=== PATIENT | male | born 1930 | race Two or more races ===

== ENCOUNTER 2017-01-14 06:40 | Inpatient (IN) | payer MEDICARE, OTHER ==
[~2017-01-14] VITALS: Ht 175.3 cm; Wt 64.0 kg
[~2017-01-14 06:40] MED LIST: AMLO10TA2 PO; AMOX500C2 PO; CALC-343 PO; CHOL100040 PO; CYAN10009 PO; FERR1TAB44 PO; LOSA50TA21 PO; MULT-1168 PO; PANT40TA4 PO; PYRI50TA9 PO; QUET25TA PO; TRIPLEFLEX PO
--- NOTE | 2017-01-14 06:40 | NUR ---
sl 20g to hand [employer].
--- NOTE | 2017-01-14 06:40 | NUR ---
to bed 2 bib paramedics c/o witnessed syncopal episode. received pt aaox4 no acute distress noted, resp even and unlabored. noted L forearm skin avulsion s/p syncopal episode. place pt on cardiac monitoring, continuous pox. er md at bedside to eval pt with orders received.
--- NOTE | 2017-01-14 06:51 | NUR ---
knitting machine operator automatic at bedside for blood draw.
--- NOTE | 2017-01-14 06:51 | NUR ---
results technician at bedside for cxr.
--- NOTE | 2017-01-14 07:04 | NUR ---
shanell corrigan talking to pt son regarding pt.
--- NOTE | 2017-01-14 07:07 | NUR ---
report given to am shift shell cuello.
--- NOTE | 2017-01-14 07:10 | NUR ---
pt transported to radiology for ct head.
--- NOTE | 2017-01-14 07:26 | NUR ---
Pt's back from CT scan. Irma upholstery sewer called for blood draw
[2017-01-14] MEDS ORDERED: LEVO50TA8 PO (07:51)
[2017-01-14] MEDS ORDERED: MULT-213 PO (07:51)
[2017-01-14] MEDS ORDERED: LOSA50TA21 PO (07:51)
[2017-01-14] MEDS ORDERED: METO25TA6 PO (07:51)
[2017-01-14] MEDS ORDERED: BUSP5TAB3 PO (07:51)
[2017-01-14] MEDS ORDERED: SUCR1TAB PO (07:51)
[2017-01-14] MEDS ORDERED: DOCU-25 PO (07:51)
[2017-01-14] MEDS ORDERED: FERR325T22 PO (07:51)
[2017-01-14] MEDS ORDERED: TAMS0.4C34 PO (07:51)
--- NOTE | 2017-01-14 07:58 | NUR ---
BP elevated, Dr. Pratt notified.
--- NOTE | 2017-01-14 07:59 | NUR ---
Pt taken to radiology for CT of the lumbar and spine.
[2017-01-14 08:05] LABS: CALCIUM, SERUM 8.8 mg/dL (8.5-10.1); CARBON DIOXIDE 31 mmol/L (21-32); CHLORIDE 99 mmol/L (98-107); CREATININE 0.9 mg/dL (0.6-1.3); GLUCOSE 112 mg/dL (74-106); POTASSIUM 4.1 mmol/L (3.5-5.1); SODIUM SERUM 136 mmol/L (136-145); UREA NITROGEN, BLOOD 15 mg/dL (7-18)
[2017-01-14 08:07] LABS: EOSINOPHILS # (AUTO) 0.1 /CMM (0.0-0.7); EOSINOPHILS % (AUTO) 2.2 % (0.0-6.0); HEMATOCRIT 38 % (39-51); HEMOGLOBIN 12.1 g/dL (13.5-17.5); LYMPHOCYTES # (AUTO) 0.9 /CMM (0.8-4.8); LYMPHOCYTES % (AUTO) 20.7 % (20.0-44.0); MEAN CORPUSCULAR HEMOGLOBIN 26 PG (26.0-33.0); MEAN CORPUSCULAR HGB CONC 32 g/dl (31.0-36.0); MEAN CORPUSCULAR VOLUME 81 fL (80-96); MONOCYTES # (AUTO) 0.3 /CMM (0.1-1.30); MONOCYTES % (AUTO) 6.7 % (2.0-12.0); NEUTROPHILS # (AUTO) 3.2 /CMM (1.8-8.9); NEUTROPHILS % (AUTO) 70.4 % (43.0-81.0); PLATELET COUNT (AUTO) 248 /CMM (150-450); RDW COEFFICIENT OF VARIATION 15.4 (11.5-15.0); RED BLOOD CELL COUNT(AUTO) 4.71 MIL/uL (4.5-6.0); WHITE BLOOD COUNT (AUTO) 4.5 K/uL (4.3-11.0)
[2017-01-14 08:10] LABS: ALANINE AMINOTRANSFERASE 31 U/L (12-78); ALBUMIN 3.7 g/dL (3.4-5.0); ALKALINE PHOSPHATASE 91 U/L (46-116); ASPARTATE AMINOTRANSFERASE 27 U/L (15-37); BILIRUBIN,DIRECT 0.1 mg/dL (0.0-0.2); BILIRUBIN,TOTAL 0.3 mg/dL (0.2-1.0); TOTAL PROTEIN, SERUM 7.5 g/dL (6.4-8.2)
[2017-01-14 08:13] LABS: TROPONIN I < 0.017 ng/mL (0.00-0.056)
--- NOTE | 2017-01-14 08:16 | NUR ---
Pt' back fromCT, pt was reconnected to the monitor.
[2017-01-14 08:18] LABS: LACTIC ACID 0.9 mmol/L (0.4-2.0)
[2017-01-14 08:24] LABS: INR 1.02 (0.87-1.13)
[2017-01-14] MEDS ORDERED: MAGNESIUM HYDROXIDE 30 ML UDC PO PRN (08:30)
[2017-01-14] MEDS ORDERED: ONDANSETRON HCL/PF 4 MG/2 ML VIAL IVP PRN (08:30)
[2017-01-14] MEDS ORDERED: ACETAMINOPHEN 325 MG TABLET PO PRN (08:30)
[2017-01-14] MEDS ORDERED: ZOLPIDEM TARTRATE 5 MG TABLET PO PRN (08:30)
[2017-01-14] MEDS ORDERED: MAG HYDROX/AL HYDROX/SIMETH 30 ML UDC PO PRN (08:30)
--- NOTE | 2017-01-14 08:51 | NUR ---
transferred to floor via acls protocol
--- NOTE | 2017-01-14 09:04 | NUR ---
Report given to oskar goff for cont of care
--- NOTE | 2017-01-14 09:18 | NUR ---
RN NOTES ADMITTED 86 Y/O M FROM ER WITH DX OF SYNCOPE, PT IS AWAKE ALERT ISLAM SPEAKING, ACCOUNT FINANCIAL MANAGER AT BEDSIDE. PT ON O2@2LPM VIA NC SATING 95%. DENIES PAIN AT THIS TIME. TELEBOX ATTACHED, NOTED SR ON MONITOR HR 66BPM. VS TAKEN AND RECORDED. NOTED BP 196/60, RECHECKED 195/125. DR MARK ARROYO AWARE WITH NEW ORDERS MADE. ORIENTED PT TO UNIT AND CALL LIGHT USE, SAFETY MAINTAINED, NEEDS ATTENDED. CALL LIGHT WITHIN REACH WILL CONT TO MONITOR
[2017-01-14 09:23] VITALS: BP 196/60
[2017-01-14] MEDS: hydrALAZINE HCL 10 MG TABLET PO PRN ×2 (09:28→20:58)
[2017-01-14] MEDS: METOPROLOL TARTRATE 25 MG TABLET PO SCH ×2 (09:28→16:23)
[2017-01-14] MEDS: busPIRone 5 MG TABLET PO SCH ×3 (10:58→16:23)
[2017-01-14] MEDS: SUCRALFATE 1 G TABLET PO SCH ×4 (10:58→20:50)
[2017-01-14] MEDS: FERROUS SULFATE (325 MG) 325 MG/TAB TABLET PO SCH (10:58)
[2017-01-14] MEDS: MULTIVITAMINS W-MINERALS 1 TAB TABLET PO SCH (10:58)
[2017-01-14] MEDS: HYDROCODONE/APAP 5/325MG 1 EACH TABLET PO PRN ×2 (10:59→16:15)
[2017-01-14] MEDS: LEVOTHYROXINE SODIUM 50 MCG TABLET PO SCH (11:03)
[2017-01-14] MEDS: LOSARTAN POTASSIUM 50 MG TABLET PO SCH ×2 (11:03→16:22)
--- NOTE | 2017-01-14 11:03 | NUR ---
RN NOTES BP RECEHECKED, 169/70
[2017-01-14] MEDS ORDERED: Z GUARD REMEDY 2 OZ OINT TP PRN (12:30)
--- NOTE | 2017-01-14 13:00 | NUR ---
RN NOTES BED ALARM GOING OFF, PT NOTED GOT OUT OF BED UNASSISTED, PT HIGH RISK FOR FALL. REDIRECTED PT BACK TO BED, UNABLE TO FOLLOW SAFETY DIRECTION AT THIS TIME. PT KEPT DRY AND COMFORTABLE. BED ALARM ON. PER DR ANIL KAMINSKI TO HAVE 1:1 SITTER FOR SAFETY
--- NOTE | 2017-01-14 13:17 | NUR ---
RN NOTES REPORTED TO DR MA LUMBAR AND THORACIC CT, ORTHOPEDIC SURGEON WILL BE CONSULTED
--- NOTE | 2017-01-14 13:40 | NUR ---
WOUND CARE CONSULT: PT NOT SEEN YET FOR SKIN ASSESSMENT DUE TO PT RESTING. PER RN, PT JUST MEDICATED FOR SEVERE AGITATION. PER RN, RT ARM SKIN TEAR WITH MEPILEX. RECOMMENDATIONS MADE BASED ON NURSING REPORT. WILL SEE PT PT CONDITION PERMITS. VERNA SCORE NOTED TO BE 13. PT TO HAVE ORTHO CONSULT. PT FELL AT HIS FACILITY PER H&P. PT ON LARRY ISOFLEX LOW AIRLOSS BED. PT TO BE TURNED AND REPOSITIONED EVERY 2 HRS PT CONDITION PERMITS, HEELS FLOATED. IN AGREEMENT WITH PLAN OF CARE. Addendum: 01/14/17 at 1358 by MAKAYLA GOMEZ WNDNU CORRECTION: PER NURSING STAFF, SKIN TEAR IS ON LEFT ARM.
[2017-01-14] MEDS ORDERED: MORPHINE SULFATE INJ 2 MG/ML DISP.SYRIN IV PRN (15:00)
[2017-01-14] MEDS: Z GUARD REMEDY 2 OZ OINT TP PRN (15:05)
[2017-01-14] MEDS: NEOMY SULF/BACITRAC ZN/POLY 15 GM TUBE TP SCH (16:15)
--- NOTE | 2017-01-14 17:31 | NUR ---
RN NOTES PT WAS SEEN AND EXAMINED BY ZOHREH FROM ORTHO PER ZOHREH HUMPHREYS WILL BE CONSULTED BUT MRI WILL BE ORDERED FIRST
--- NOTE | 2017-01-14 18:48 | NUR ---
RN CLOSING NOTES, PT IN BED, VERY AGITATED AT THIS TIME, PT IS CONFUSED, UNABLE TO REDIRECT. PER REQUEST, DO NOT GIVE PAIN MEDICATION AT THIS TIME. SAFETY MEASURES IMPLEMENTED, SITTER AT BEDSIDE. PT ATE 75% OF DINNER KEPT COMFORTABLE, CALL LIGHT WITHIN REACH.
--- NOTE | 2017-01-14 19:10 | NUR ---
RN NOTE SPOKE WITH , CONSENT OKAY FOR MRI, CHECKLIST COMPLETED, INTERVIEWED VIA TELEPHONE
[2017-01-14 20:00] VITALS: BP 199/78
--- NOTE | 2017-01-14 20:00 | NUR ---
Patient AA&O X 2 OTHERWISE CONFUSED AND AGITATED TALKING NON STOP.WITH 1:1 SITTER AT BEDSIDE.SR/SB PER MONITOR.O2 SAT 96 % ON RA.RESPIRATION EVEN AND UNLABORED.NO DISTRESS NOTED.PATIENT MOVES IN BED INDEPENDENTLY.WITH LEFT ARM ABRASION KITCHEN HAND.SALINE LOCK TO LEFT HAND INTACT.SAFETY/FALL PRECAUTION MAINTAINED WITH CALL LIGHT AT BEDSIDE WITHIN EASY REACH.
[2017-01-14 20:58] VITALS: BP 150/70
--- NOTE | 2017-01-14 20:58 | NUR ---
BP LYING DOWN 150/56, PULSE 56,RR 19, O2 SAT 96%. BP SITTING 199/78,PULSE 58,RR 19, O2 SAT 96% BP STANDING 183/75,PULSE 60,RR 20,O2 SAT 96 % Patient was medicated with Hydralazine po as PRN.Patient confused and agitated.Fall and safety precaution observed with 1:1 SITTER at bedside at all times. Addendum: 01/14/17 at 2146 by GONZALEZ CRUZ RN Amended: Links added.
[2017-01-14] MEDS: QUETIAPINE FUMARATE 25 MG TABLET PO SCH (21:29)
[2017-01-14] MEDS: DOCUSATE SODIUM 100 MG CAPSULE PO SCH (21:29)
[2017-01-14] MEDS: TAMSULOSIN 0.4 MG CAP.SR.24H PO SCH (21:29)
[2017-01-15] VITALS (8 sets, daily range): BP systolic 122–213; BP diastolic 56–95
[2017-01-15] MEDS ORDERED: hydrALAZINE HCL IV 20 MG VIAL ONE (00:32)
[2017-01-15] MEDS: hydrALAZINE HCL IV 20 MG VIAL IV PRN ×2 (00:37→21:04)
[2017-01-15 06:46] LABS: EOSINOPHILS # (AUTO) 0.3 /CMM (0.0-0.7); EOSINOPHILS % (AUTO) 4.3 % (0.0-6.0); HEMATOCRIT 37 % (39-51); HEMOGLOBIN 11.8 g/dL (13.5-17.5); LYMPHOCYTES # (AUTO) 1.2 /CMM (0.8-4.8); LYMPHOCYTES % (AUTO) 17.3 % (20.0-44.0); MEAN CORPUSCULAR HEMOGLOBIN 26 PG (26.0-33.0); MEAN CORPUSCULAR HGB CONC 32 g/dl (31.0-36.0); MEAN CORPUSCULAR VOLUME 81 fL (80-96); MONOCYTES % (AUTO) 15.3 % (2.0-12.0); NEUTROPHILS # (AUTO) 4.3 /CMM (1.8-8.9); NEUTROPHILS % (AUTO) 63.1 % (43.0-81.0); PLATELET COUNT (AUTO) 223 /CMM (150-450); RDW COEFFICIENT OF VARIATION 15.9 (11.5-15.0); RED BLOOD CELL COUNT(AUTO) 4.58 MIL/uL (4.5-6.0); WHITE BLOOD COUNT (AUTO) 6.9 K/uL (4.3-11.0)
--- NOTE | 2017-01-15 06:55 | NUR ---
PATIENT ABLE TO SLEEP COUPLE OF HRS WITH SLEEPING PILL.STILL AGITATED AND CONFUSED. DENIES PAIN.ALL NEEDS ANTICIPATED AND MET.1:1 SITTER AT BEDSIDE.
--- NOTE | 2017-01-15 07:05 | NUR ---
RN NOTES RECEIVED PT AWAKE ALERT WITH EPISODE OF CONFUSION ,AGITATED , GONSALO SPEAKING, 1 ;1 SITTER AT BEDSIDE , .PT ON O2 @2LPM VIA NC SATING 96%. NO S/S OF DISCOMFORT AND SOB , NOT IN ACUTE DISTRESS AT THIS TIME. SR 75 ON TELE MONITOR . IV OF L HAND @ 20 SL PATENT AND INTACT , ALL NEEDS ATTENDED , BED ON LOW AND LOCKED POSITION , SIDE RAILS X2 .CALL LIGHT WITHIN REACH , HOB @ 35 , WILL CONTINUE TO MONITOR
[2017-01-15 07:22] LABS: THYROID STIMULATING HORMONE 5.625 uIU/mL (0.358-3.74)
[2017-01-15 07:24] LABS: ALBUMIN 3.4 g/dL (3.4-5.0); BILIRUBIN,TOTAL 0.3 mg/dL (0.2-1.0); CALCIUM, SERUM 8.7 mg/dL (8.5-10.1); CREATININE 0.8 mg/dL (0.6-1.3); MAGNESIUM 1.7 mg/dL (1.8-2.4); PHOSPHORUS 3.1 mg/dL (2.5-4.9); POTASSIUM 3.8 mmol/L (3.5-5.1)
[2017-01-15] MEDS: SUCRALFATE 1 G TABLET PO SCH ×4 (08:55→21:04)
[2017-01-15] MEDS: busPIRone 5 MG TABLET PO SCH ×3 (08:55→17:38)
[2017-01-15] MEDS: MULTIVITAMINS W-MINERALS 1 TAB TABLET PO SCH (08:55)
[2017-01-15] MEDS: LEVOTHYROXINE SODIUM 50 MCG TABLET PO SCH (08:55)
[2017-01-15] MEDS: NEOMY SULF/BACITRAC ZN/POLY 15 GM TUBE TP SCH (08:56)
[2017-01-15] MEDS: FERROUS SULFATE (325 MG) 325 MG/TAB TABLET PO SCH (08:56)
[2017-01-15] MEDS: PANTOPRAZOLE 40 MG TABLET.DR PO SCH (08:56)
[2017-01-15] MEDS: METOPROLOL TARTRATE 25 MG TABLET PO SCH ×2 (08:56→17:39)
[2017-01-15] MEDS: LOSARTAN POTASSIUM 50 MG TABLET PO SCH ×2 (08:56→17:39)
[2017-01-15] MEDS ORDERED: LORAZEPAM INJ 2 MG/ML VIAL IV ONE (09:00)
--- NOTE | 2017-01-15 09:00 | NUR ---
CONCRETE ENGINEERING TECHNICIAN NOTES MRI CHECKLIST DONE , PER PT SON AND PT HAD BILATERAL HIP REPLACEMENT DONE 10 - 11 YEARS AGO . VERIFIED IF ITS TITANIUM , PER SHE DOESN'T HAVE ANY IDEA , JAVA ENGINEER NOTIFIED BILATERAL HIP SX WAS DONE IN [facility] , Addendum: 01/15/17 at 1358 by IGNACIO ROBERTSON RN UPPER DENTURES REMOVED FOR MRI , WILL CONTINUE TO MONITOR
[2017-01-15 09:01] LABS: EOSINOPHILS % (MANUAL) 5 % (0-4); LYMPHOCYTES % (MANUAL) 25 % (16-48); MONOCYTES % (MANUAL) 13 % (0-11.0); NEUTROPHILS % (MANUAL) 57 (42-76); PLATELET ESTIMATE ADEQUATE
[2017-01-15 09:02] LABS: ANISOCYTOSIS 1+; HYPOCHROMASIA 1+
[2017-01-15] MEDS ORDERED: ZOLPIDEM TARTRATE 5 MG TABLET PO PRN (11:00)
[2017-01-15] MEDS ORDERED: IV SET PRIMARY PUMP SET 1 EA INFUS.SET MC ONE (11:59)
[2017-01-15] MEDS: ACETAMINOPHEN 325 MG TABLET PO SCH ×2 (12:09→17:38)
[2017-01-15] MEDS: Magnesium 1GM/D5W 100ML PREMIX 100 ML IV SCH ×2 (12:30→13:34)
--- NOTE | 2017-01-15 13:52 | NUR ---
AUTO MOTOR MECHANIC NOTES GERIATRIC MD AND DR MA AT BEDSIDE ,DISCUSSING PLAN OF CARE WITH SON , NOTIFIED PT HAD BILATERAL KNEE AND HIP XRAY NEGATIVE FOR DISLOCATION AND FRACTURE , BP OF 213/79 0037 LAST NIGHT HYDRALAZINE 10MG IVP GIVEN , LATEST CORONA OF 150'S TODAY , PT STILL AGITATED AND CONFUSE WITH 1:1 SITTER . 0915 TRANSFERED PT TO MRI DEPARTMENT SEDATED PT WITH ATIVAN 1MG , 0920 , UNABLE TO GET COMPLETE MRI PT GETS AGITATED , WILL CALL MRI DEPARTMENT FOR REPEAT MRI . 1350 LOG DRIVER AT BEDSIDE , DISCUSSING PLAN OF CARE FOR REHABILITATION .
[2017-01-15] MEDS ORDERED: LORAZEPAM INJ 2 MG/ML VIAL ONE (16:17)
--- NOTE | 2017-01-15 16:55 | NUR ---
RN NOTES PT HAS EPISODE OF SYNCOPAL EPISODE IN MRI TRAILER FOR 3-5 SECONDS , DEEP STIMULATE THE PT , ABLE TO RESPONSE , NO FACIAL DROOP , BUE WNL ABLE TO SQUEEZE HANDS , BP OF 140/55 , PULSES ARE PALPABLE , RESPIRATIONS EVEN AND UNLABORED , TRANSFERRED PT BACK TO ROOM , V/S CHECKED , BP 146/70 , HR 65 , SPO2 OF 99% VIA RA , RR 22 , AFEBRILE , MORE AWARE ,RESPONSIVE STILL AGITATED , MD AWARE NO NEW ORDERS RECEIVED . DR MA AT BEDSIDE DISCUSSING PLAN OF CARE TO SON , NO NARCOTICS , SEDATION FOR 24 HOURS PER MD ,
[2017-01-15] MEDS ORDERED: HYDROCODONE/APAP 5/325MG 1 EACH TABLET PO PRN (17:00)
[2017-01-15] MEDS ORDERED: SENNOSIDES/DOCUSATE SODIUM 1 TAB TABLET PO SCH (18:00)
--- NOTE | 2017-01-15 20:00 | NUR ---
RECEIVED PATIENT AT BED, SLEEPING AT THIS TIME, VSS AFEBRILE NO DISTRESS NOTED
--- NOTE | 2017-01-15 21:00 | NUR ---
VITAL SIGNS TAKEN,BP ELEVATED- HYDRALAZINE GIVEN SCHEDULED ALONG WITH SCHEDULED MEDICATIONS
[2017-01-15] MEDS: TAMSULOSIN 0.4 MG CAP.SR.24H PO SCH (21:04)
[2017-01-15] MEDS: DOCUSATE SODIUM 100 MG CAPSULE PO SCH (21:04)
[2017-01-15] MEDS: QUETIAPINE FUMARATE 25 MG TABLET PO SCH (21:04)
[2017-01-16] VITALS: BP 129/64
[2017-01-16 04:00] VITALS: BP 129/69
[2017-01-16 06:35] LABS: EOSINOPHILS # (AUTO) 0.2 /CMM (0.0-0.7); EOSINOPHILS % (AUTO) 3.2 % (0.0-6.0); HEMATOCRIT 37 % (39-51); HEMOGLOBIN 11.8 g/dL (13.5-17.5); LYMPHOCYTES % (AUTO) 16.4 % (20.0-44.0); MEAN CORPUSCULAR HEMOGLOBIN 26 PG (26.0-33.0); MEAN CORPUSCULAR HGB CONC 32 g/dl (31.0-36.0); MEAN CORPUSCULAR VOLUME 81 fL (80-96); MONOCYTES # (AUTO) 0.8 /CMM (0.1-1.30); NEUTROPHILS % (AUTO) 67.4 % (43.0-81.0); PLATELET COUNT (AUTO) 220 /CMM (150-450); RDW COEFFICIENT OF VARIATION 15.8 (11.5-15.0); RED BLOOD CELL COUNT(AUTO) 4.54 MIL/uL (4.5-6.0)
[2017-01-16 06:46] LABS: CALCIUM, SERUM 8.6 mg/dL (8.5-10.1); CREATININE 0.8 mg/dL (0.6-1.3); MAGNESIUM 1.8 mg/dL (1.8-2.4); POTASSIUM 3.7 mmol/L (3.5-5.1)
--- NOTE | 2017-01-16 07:30 | NUR ---
INITIAL NOTES patient in bed, verbalizing needs, denies pain, can follow simple commands, oriented only to person, appearing anxious/ hostile. breathing wnl on room air o2 sat >95. iv on R forearm patent, no s/s of infection or infiltration. encouraged repositioning, provided comfort measures, discussed plan of care. sitter at bed side. call light in reach.
[2017-01-16 08:00] VITALS: BP 137/67
[2017-01-16] MEDS: ACETAMINOPHEN 325 MG TABLET PO SCH ×3 (08:58→16:59)
[2017-01-16] MEDS: PANTOPRAZOLE 40 MG TABLET.DR PO SCH (08:58)
[2017-01-16] MEDS: LEVOTHYROXINE SODIUM 50 MCG TABLET PO SCH (08:58)
[2017-01-16] MEDS: FERROUS SULFATE (325 MG) 325 MG/TAB TABLET PO SCH (08:59)
[2017-01-16] MEDS: METOPROLOL TARTRATE 25 MG TABLET PO SCH ×2 (08:59→17:01)
[2017-01-16] MEDS: SUCRALFATE 1 G TABLET PO SCH ×4 (08:59→20:17)
[2017-01-16] MEDS: LOSARTAN POTASSIUM 50 MG TABLET PO SCH ×2 (08:59→16:59)
[2017-01-16] MEDS: busPIRone 5 MG TABLET PO SCH ×3 (08:59→16:59)
[2017-01-16] MEDS: MULTIVITAMINS W-MINERALS 1 TAB TABLET PO SCH (08:59)
[2017-01-16] MEDS: CHOLECALCIFEROL 1,000 UNIT TABLET (VIT D3) PO SCH (08:59)
[2017-01-16] MEDS: NEOMY SULF/BACITRAC ZN/POLY 15 GM TUBE TP SCH (09:00)
[2017-01-16 10:24] LABS: BAND % (MANUAL) 1 % (0.0-5.0); EOSINOPHILS % (MANUAL) 3 % (0-4); HYPOCHROMASIA 1+; LYMPHOCYTES % (MANUAL) 18 % (16-48); MONOCYTES % (MANUAL) 6 % (0-11.0); NEUTROPHILS % (MANUAL) 72 (42-76); PLATELET ESTIMATE ADEQUATE
[2017-01-16 12:00] VITALS: BP 151/61
[2017-01-16] MEDS ORDERED: FLU VACC QS 2016-17(36MOS+)/PF 0.5 ML DISP.SYRIN IM ONE (12:30)
[2017-01-16 16:00] VITALS: BP 165/67
[2017-01-16 16:53] LABS: APPEARANCE,URINE SL CLOUDY (CLEAR); BILIRUBIN,URINE NEGATIVE (NEGATIVE); BLOOD, URINE NEGATIVE Ery/uL (NEGATIVE); COLOR,URINE YELLOW (YELLOW); KETONES,URINE NEGATIVE (NEGATIVE); LEUKOCYTE ESTERASE ,URINE NEGATIVE (NEGATIVE); NITRITE, URINE NEGATIVE (NEGATIVE); PH,URINE 6.5 (5.0-8.0); PROTEIN,URINE NEGATIVE (NEGATIVE); UGLUCOSE NEGATIVE (NEGATIVE); UROBILINOGEN,URINE 0.2 EU/dL (0.2)
[2017-01-16] MEDS: SENNOSIDES/DOCUSATE SODIUM 1 TAB TABLET PO SCH (16:58)
--- NOTE | 2017-01-16 19:35 | NUR ---
closing notes patient stable, loc and breathing wnl. asked dr. Lomax for PT eval per request, informed dr. Lomax wants to speak to orthopedic team. paged TANK CLEANING SUPERVISOR Franck Momin's, pending response. patient plan of care is plan for d/c to rehab center. Dr. Lomax spoke to patient's son at length this shift. sitter at bed side. endorsed to night nurse. call light in reach. repositioned q2 hr.
[2017-01-16 20:00] VITALS: BP 149/60
[2017-01-16] MEDS: QUETIAPINE FUMARATE 25 MG TABLET PO SCH (21:29)
[2017-01-16] MEDS: DOCUSATE SODIUM 100 MG CAPSULE PO SCH (21:29)
[2017-01-16] MEDS: TAMSULOSIN 0.4 MG CAP.SR.24H PO SCH (21:29)
[2017-01-17] VITALS (8 sets, daily range): BP systolic 152–188; BP diastolic 54–86
[2017-01-17] MEDS: hydrALAZINE HCL IV 20 MG VIAL IV PRN ×2 (05:02→17:56)
--- NOTE | 2017-01-17 06:20 | NUR ---
OPERATIONS/DISPATCH: NO SIGNIFICANT ELIZABETH DURING THE SHIFT. REMAINED ON ROOM AIR WT NO ACUTE DISTRESS. NO EVIDENCE OF DISCOMFORT. WAS UNCOOPERATIVE, AGITATED AND CONFUSED DURING THE START OF THE SHIFT. REDIRECTIVE AND REORIENTED WT MINIMAL HELP. ALL DUE MEDS GIVEN ORDERED AND WAS ABLE TO FALL ASLEEP. REMAINED SR ON TELE MONITOR. GIVEN HYDRALAZINE X 1 FOR SBP ABOVE 160 WT GOOD EFFECT. KEPT CLEAN AND DRY. SITTER AT BEDSIDE. SAFETY PRECAUTION NOTED AT ALL TIMES.
[2017-01-17 06:30] LABS: EOSINOPHILS # (AUTO) 0.3 /CMM (0.0-0.7); EOSINOPHILS % (AUTO) 6.1 % (0.0-6.0); HEMATOCRIT 37 % (39-51); HEMOGLOBIN 11.8 g/dL (13.5-17.5); LYMPHOCYTES # (AUTO) 1.4 /CMM (0.8-4.8); LYMPHOCYTES % (AUTO) 24.8 % (20.0-44.0); MEAN CORPUSCULAR HEMOGLOBIN 26 PG (26.0-33.0); MEAN CORPUSCULAR HGB CONC 32 g/dl (31.0-36.0); MEAN CORPUSCULAR VOLUME 81 fL (80-96); MONOCYTES # (AUTO) 0.7 /CMM (0.1-1.30); MONOCYTES % (AUTO) 11.9 % (2.0-12.0); NEUTROPHILS # (AUTO) 3.2 /CMM (1.8-8.9); NEUTROPHILS % (AUTO) 57.2 % (43.0-81.0); PLATELET COUNT (AUTO) 223 /CMM (150-450); RDW COEFFICIENT OF VARIATION 16.1 (11.5-15.0); RED BLOOD CELL COUNT(AUTO) 4.56 MIL/uL (4.5-6.0); WHITE BLOOD COUNT (AUTO) 5.6 K/uL (4.3-11.0)
[2017-01-17 06:40] LABS: CALCIUM, SERUM 8.8 mg/dL (8.5-10.1); CREATININE 0.8 mg/dL (0.6-1.3); POTASSIUM 3.9 mmol/L (3.5-5.1)
--- NOTE | 2017-01-17 07:26 | NUR ---
INITIAL NOTES patient in bed, verbalizing/yelling needs, denies pain, able to follow simple commands however non-compliant, oriented only to person, appearing anxious/ hostile. breathing wnl on room air. iv on R forearm patent, no s/s of infection or infiltration. encouraged repositioning, provided comfort measures, discussed plan of care. sitter at bed side. call light in reach.
[2017-01-17] MEDS: ACETAMINOPHEN 325 MG TABLET PO SCH ×3 (08:01→13:49)
[2017-01-17] MEDS: LEVOTHYROXINE SODIUM 50 MCG TABLET PO SCH (08:02)
[2017-01-17] MEDS: MULTIVITAMINS W-MINERALS 1 TAB TABLET PO SCH (08:02)
[2017-01-17] MEDS: METOPROLOL TARTRATE 25 MG TABLET PO SCH ×2 (08:02→16:40)
[2017-01-17] MEDS: FERROUS SULFATE (325 MG) 325 MG/TAB TABLET PO SCH (08:02)
[2017-01-17] MEDS: busPIRone 5 MG TABLET PO SCH ×3 (08:02→16:40)
[2017-01-17] MEDS: CHOLECALCIFEROL 1,000 UNIT TABLET (VIT D3) PO SCH (08:02)
[2017-01-17] MEDS: SUCRALFATE 1 G TABLET PO SCH ×4 (08:02→20:27)
[2017-01-17] MEDS: LOSARTAN POTASSIUM 50 MG TABLET PO SCH ×2 (08:02→16:39)
[2017-01-17] MEDS: PANTOPRAZOLE 40 MG TABLET.DR PO SCH (08:02)
[2017-01-17] MEDS: NEOMY SULF/BACITRAC ZN/POLY 15 GM TUBE TP SCH (08:03)
--- NOTE | 2017-01-17 11:45 | NUR ---
RN NOTES SPOKE TO JOSESITO QUISPE OF DR. CORTES. SHE GAVE TELEPHONE ORDER FOR PT EVAL AND TLFO BACK BRACE. ORDER FAXED TO PROVIDING COMPANY AND INFORMED REHAB TEAM. GAVE VIKI PATIENT'S 'S PHONE NUMBER FOR IDT COMMUNICATION. VIKI STATED SHE SPOKE TO PATIENT'S IGLESIA. PLAN FOR PT EVAL WITH BACK BRACE, AMBULATE TO BATHROOM TOLERATED, EFFORT FOR BOWEL MOVEMENT. PLAN FOR ACUTE REHAB PLACEMENT FOR CONTINUITY OF CARE.
[2017-01-17] MEDS ORDERED: POLYETHYLENE GLYCOL 3350 17 GM POWD.PACK PO ONE (13:00)
[2017-01-17 14:27] LABS: RHEUMATOID FACTOR SCREEN POSITIVE (NEG)
[2017-01-17] MEDS: SENNOSIDES/DOCUSATE SODIUM 1 TAB TABLET PO SCH (16:39)
--- NOTE | 2017-01-17 18:25 | NUR ---
RN NOTE BP RECHECKED AFTER ROUTINE BP MEDS GIVEN, NOTED BP WAS 199/89 @1745. ADMINISTERED HYDRALAZINE IV @1800. @ THIS TIME BP IS 188/[address], [address] SOLIS. 1 NEW TELEPHONE ORDER FOR CLONIDINE 0.2 MG PO Q6HR PRN SBP >160. ORDER READ BACK, CONFIRMED, INPUT.
[2017-01-17] MEDS: CLONIDINE HCL 0.1 MG TABLET PO PRN (18:56)
--- NOTE | 2017-01-17 19:18 | NUR ---
RN CLOSING NOTES ENDORSED TO NIGHT NURSE ALL INFORMATION ABOUT PATIENT HX, DX, AND PLAN OF CARE, INCLUDING COMMUNICATION BETWEEN IDT AND VS STATUS. SITTER AT BED SIDE, CALL LIGHT IN REACH.
[2017-01-17] MEDS: QUETIAPINE FUMARATE 25 MG TABLET PO SCH (21:09)
[2017-01-17] MEDS: DOCUSATE SODIUM 100 MG CAPSULE PO SCH (21:10)
[2017-01-17] MEDS: TAMSULOSIN 0.4 MG CAP.SR.24H PO SCH (21:10)
--- NOTE | 2017-01-17 21:15 | NUR ---
TELE-TD/ORACLE APPLICATION ARCHITECT PT MOVED TO ROOM 105-1 TO BE CLOSER TO THE NURSES STATION. WILL CONTINUE TO MONITOR CLOSELY.
[2017-01-18] VITALS (7 sets, daily range): BP systolic 128–186; BP diastolic 41–81
[2017-01-18] MEDS: QUETIAPINE FUMARATE 25 MG TABLET PO PRN ×3 (02:01→18:08)
--- NOTE | 2017-01-18 03:20 | NUR ---
TELE-TD/ATTORNEY AT LAW PT HAVING AN AGGRESSIVE OUTBURST, REMOVING TELE BOX AND HITTING ME WHILE I TRY TO FIX THE LEADS. I REORIENTED THE PT TO HIS CURRENT SITUATION. WILL CONTINUE TO MONITOR CLOSELY.
[2017-01-18 06:41] LABS: EOSINOPHILS # (AUTO) 0.3 /CMM (0.0-0.7); EOSINOPHILS % (AUTO) 5.2 % (0.0-6.0); HEMATOCRIT 36 % (39-51); HEMOGLOBIN 11.7 g/dL (13.5-17.5); LYMPHOCYTES # (AUTO) 1.5 /CMM (0.8-4.8); LYMPHOCYTES % (AUTO) 28.3 % (20.0-44.0); MEAN CORPUSCULAR HEMOGLOBIN 27 PG (26.0-33.0); MEAN CORPUSCULAR HGB CONC 33 g/dl (31.0-36.0); MEAN CORPUSCULAR VOLUME 81 fL (80-96); MONOCYTES # (AUTO) 0.8 /CMM (0.1-1.30); MONOCYTES % (AUTO) 14.2 % (2.0-12.0); NEUTROPHILS # (AUTO) 2.8 /CMM (1.8-8.9); NEUTROPHILS % (AUTO) 52.3 % (43.0-81.0); PLATELET COUNT (AUTO) 222 /CMM (150-450); RDW COEFFICIENT OF VARIATION 15.9 (11.5-15.0); RED BLOOD CELL COUNT(AUTO) 4.41 MIL/uL (4.5-6.0); WHITE BLOOD COUNT (AUTO) 5.4 K/uL (4.3-11.0)
[2017-01-18 06:49] LABS: CALCIUM, SERUM 8.4 mg/dL (8.5-10.1); CREATININE 0.8 mg/dL (0.6-1.3); MAGNESIUM 1.8 mg/dL (1.8-2.4); PHOSPHORUS 3.8 mg/dL (2.5-4.9); POTASSIUM 3.9 mmol/L (3.5-5.1)
--- NOTE | 2017-01-18 07:15 | NUR ---
PAULY/RN: PT RECEIVED IN BED, ALERT TO SELF ONLY, FORGETFUL, OBEYS SIMPLE COMMANDS, BREATHING EVEN AND UNLABORED ON RA, NO FACIAL GRIMACING OR DISTRESS NOTED. IV HL PATENT AND INTACT. 1:1 SITTER AT THE BEDSIDE. WILL CONT TO MONITOR PT STATUS. TELE READING: SR 60
[2017-01-18] MEDS: FERROUS SULFATE (325 MG) 325 MG/TAB TABLET PO SCH (08:03)
[2017-01-18] MEDS: MULTIVITAMINS W-MINERALS 1 TAB TABLET PO SCH (08:03)
[2017-01-18] MEDS: ACETAMINOPHEN 325 MG TABLET PO SCH (08:04)
[2017-01-18] MEDS: PANTOPRAZOLE 40 MG TABLET.DR PO SCH (08:04)
[2017-01-18] MEDS: CLONIDINE HCL 0.1 MG TABLET PO PRN (08:04)
[2017-01-18] MEDS: CHOLECALCIFEROL 1,000 UNIT TABLET (VIT D3) PO SCH (08:04)
[2017-01-18] MEDS: busPIRone 5 MG TABLET PO SCH ×3 (08:04→16:24)
[2017-01-18] MEDS: LEVOTHYROXINE SODIUM 50 MCG TABLET PO SCH (08:04)
[2017-01-18] MEDS: LOSARTAN POTASSIUM 50 MG TABLET PO SCH ×2 (08:04→16:25)
[2017-01-18] MEDS: METOPROLOL TARTRATE 25 MG TABLET PO SCH ×2 (08:05→16:25)
[2017-01-18] MEDS: NEOMY SULF/BACITRAC ZN/POLY 15 GM TUBE TP SCH (08:05)
[2017-01-18] MEDS: Z GUARD REMEDY 2 OZ OINT TP PRN (08:12)
[2017-01-18] MEDS: SUCRALFATE 1 G TABLET PO SCH ×4 (08:12→21:17)
--- NOTE | 2017-01-18 12:18 | NUR ---
PAULY/RN: DR WILL DEL ROSARIO; ABN LABS, REMAINS HYPERTENSIVE SBP 160'S WITH PULSE IN 50'S. PRN BP MEDS TO BE HELD. ORDERS NOTED AND CARRIED OUT.
[2017-01-18] MEDS ORDERED: IV SET PRIMARY PUMP SET 1 EA INFUS.SET MC ONE (12:33)
[2017-01-18] MEDS: IV NS 0.9% 1,000 ML IV PRN (12:38)
[2017-01-18] MEDS: hydrALAZINE HCL IV 20 MG VIAL IV PRN (16:24)
--- NOTE | 2017-01-18 16:30 | NUR ---
PAULY/RN: PRN HYDRALAZINE ADMINISTERED FOR SBP>160; PT HR >60.
[2017-01-18] MEDS: SENNOSIDES/DOCUSATE SODIUM 1 TAB TABLET PO SCH (17:16)
--- NOTE | 2017-01-18 19:10 | NUR ---
PAULY/RN: PT RESTING COMFORTABLY IN BED, A&OX2, FORGETFUL. IVF INFUSING WELL. CARE ENDORSED TO PM RN FOR ELIZABETH. TELE READING SB 57
--- NOTE | 2017-01-18 19:30 | NUR ---
RECEIVED PATIENT AWAKE ALERT ORIENTED TO SELF OTHERWISE CONFUSED AND DISORIENTED. REORIENTED TO PLACE AND TIME.FOLLOWS SIMPLE COMMANDS.RESPIRATION EVEN AND UNLABORED. PLAN OF CARE EXPLAIN TO PATIENT.SAFETY CHECKED WITH CALL LIGHT AT BEDSIDE WITHIN EASY REACH WITH INSTRUCTIONS.VS STABLE.TELE SB 57.DENIES PAIN OR ANY DISCOMFORT.WILL MONITOR CLOSELY.
[2017-01-18] MEDS: TAMSULOSIN 0.4 MG CAP.SR.24H PO SCH (21:17)
[2017-01-18] MEDS: QUETIAPINE FUMARATE 25 MG TABLET PO SCH (21:17)
[2017-01-18] MEDS: DOCUSATE SODIUM 100 MG CAPSULE PO SCH (21:17)
[2017-01-19] VITALS: BP 150/90
[2017-01-19] MEDS: QUETIAPINE FUMARATE 25 MG TABLET PO PRN ×3 (00:29→16:08)
--- NOTE | 2017-01-19 00:30 | NUR ---
0030 PATIENT AGITATED AND YELLING.SEROQUEL ADMINISTERED PRN.CONTINUE TO MONITOR CLOSELY.
[2017-01-19] MEDS: IV NS 0.9% 1,000 ML IV PRN (02:48)
[2017-01-19 04:00] VITALS: BP 183/67
[2017-01-19] MEDS: hydrALAZINE HCL IV 20 MG VIAL IV PRN ×2 (04:58→19:59)
--- NOTE | 2017-01-19 04:58 | NUR ---
PATIENT BP 186/67 HYDRALAZINE ADMINISTERED PRN.
--- NOTE | 2017-01-19 06:00 | NUR ---
PATIENT RESTING.DENIES PAIN OR ANY DISCOMFORT.ASKING REPEATEDLY FOR HIS WHEEL CHAIR. IVF INFUSING.INCONTINENT OF URINE .KEPT CLEAN AND DRY.NO BM NOTED.LATEST BP 168/69. ALL NEEDS ANTICIPATED AND MET.
[2017-01-19 06:25] LABS: BASOPHILS % (AUTO) 0.5 % (0.0-2.0); EOSINOPHILS # (AUTO) 0.2 /CMM (0.0-0.7); EOSINOPHILS % (AUTO) 4.8 % (0.0-6.0); HEMATOCRIT 35 % (39-51); HEMOGLOBIN 11.5 g/dL (13.5-17.5); LYMPHOCYTES # (AUTO) 1.8 /CMM (0.8-4.8); LYMPHOCYTES % (AUTO) 34.9 % (20.0-44.0); MEAN CORPUSCULAR HEMOGLOBIN 26 PG (26.0-33.0); MEAN CORPUSCULAR HGB CONC 33 g/dl (31.0-36.0); MEAN CORPUSCULAR VOLUME 81 fL (80-96); MONOCYTES # (AUTO) 0.6 /CMM (0.1-1.30); MONOCYTES % (AUTO) 11.2 % (2.0-12.0); NEUTROPHILS # (AUTO) 2.5 /CMM (1.8-8.9); NEUTROPHILS % (AUTO) 48.6 % (43.0-81.0); PLATELET COUNT (AUTO) 226 /CMM (150-450); RDW COEFFICIENT OF VARIATION 15.7 (11.5-15.0); RED BLOOD CELL COUNT(AUTO) 4.38 MIL/uL (4.5-6.0); WHITE BLOOD COUNT (AUTO) 5.1 K/uL (4.3-11.0)
[2017-01-19 06:37] LABS: CALCIUM, SERUM 8.7 mg/dL (8.5-10.1); CREATININE 0.6 mg/dL (0.6-1.3); MAGNESIUM 1.5 mg/dL (1.8-2.4); PHOSPHORUS 3.2 mg/dL (2.5-4.9); POTASSIUM 3.9 mmol/L (3.5-5.1)
[2017-01-19 08:00] VITALS: BP 147/75
--- NOTE | 2017-01-19 08:00 | NUR ---
RN INTIAL PAULY NOTE RECEIVED PT FROM PM NURSE AOX1. SR75 RA97%. IV RFA PATENT NO INFILTRATION NOTED NS @65 ML/HR. NO SIGN OF DISTRESS AND SOB. PT AGITATED THIS MORNING . PT YELLING HELLO AND ASKING FOR MORNING TABLETS AND WALKER. UNABLE TO REDIRECT WILL ORIENTATE PT NEEDED. WILL CONTINUE TO MONITOR CLOSELY. SAFETY MEASURES IN PLACE BED RAILS UP, BED LOW, LOCKED AND CALL LIGHT WITH IN REACH.
[2017-01-19] MEDS: CHOLECALCIFEROL 1,000 UNIT TABLET (VIT D3) PO SCH (08:04)
[2017-01-19] MEDS: FERROUS SULFATE (325 MG) 325 MG/TAB TABLET PO SCH (08:04)
[2017-01-19] MEDS: LOSARTAN POTASSIUM 50 MG TABLET PO SCH ×2 (08:04→17:30)
[2017-01-19] MEDS: LEVOTHYROXINE SODIUM 50 MCG TABLET PO SCH (08:04)
[2017-01-19] MEDS: MULTIVITAMINS W-MINERALS 1 TAB TABLET PO SCH (08:04)
[2017-01-19] MEDS: PANTOPRAZOLE 40 MG TABLET.DR PO SCH (08:04)
[2017-01-19] MEDS: busPIRone 5 MG TABLET PO SCH ×3 (08:04→17:29)
[2017-01-19] MEDS: METOPROLOL TARTRATE 25 MG TABLET PO SCH ×2 (08:07→17:30)
[2017-01-19] MEDS: SUCRALFATE 1 G TABLET PO SCH ×4 (08:11→21:28)
[2017-01-19] MEDS: NEOMY SULF/BACITRAC ZN/POLY 15 GM TUBE TP SCH (08:11)
[2017-01-19 12:00] VITALS: BP_SYST 118; BP_SYST 147; BP_DIAS 74; BP_DIAS 75
[2017-01-19] MEDS ORDERED: Magnesium 1GM/D5W 100ML PREMIX 100 ML IV SCH (12:01)
[2017-01-19] MEDS: Magnesium 1GM/D5W 100ML PREMIX 100 ML IV SCH ×4 (12:29→16:08)
[2017-01-19 16:00] VITALS: BP 110/69
[2017-01-19] MEDS: SENNOSIDES/DOCUSATE SODIUM 1 TAB TABLET PO SCH (17:29)
--- NOTE | 2017-01-19 19:00 | NUR ---
RN ENDING PAULY NOTE PT AOX1 PT CONTINUES TO BE AGITATED UNABLE TO REDIRECT, SEROQUEL GIVEN. SR 75. V/S STABLE THROUGHOUT SHIFT.BED RAILS UP, BED LOW AND LOCKED CALL LIGHT WITH IN REACH. REPORT GIVEN TO PM SHIFT NURSE FOR ELIZABETH.
[2017-01-19 20:00] VITALS: BP_SYST 190; BP_SYST 203; BP_DIAS 100; BP_DIAS 104
--- NOTE | 2017-01-19 20:00 | NUR ---
A OPERATOR: RECEIVED PT VERY CONFUSED,AGITATING, KEEP YELLING, TALKS NOT MAKE SENSE, FAMILY REFUSED TO GIVE ANY SEDATION DUE TO SYNCOPE EPISODES IN THE PAST.ON ROOM AIR SATURATING 96%, 1: 1SITTER AT BEDSIDE. SAFETY PRECAUTION PLACED. V/S STABLE. IV ACCESS INTACT. ONGOING MONITORING..
[2017-01-19] MEDS: DOCUSATE SODIUM 100 MG CAPSULE PO SCH (20:42)
[2017-01-19] MEDS: TAMSULOSIN 0.4 MG CAP.SR.24H PO SCH (21:28)
[2017-01-19] MEDS: QUETIAPINE FUMARATE 25 MG TABLET PO SCH (21:28)
[2017-01-20] VITALS: BP 170/90
[2017-01-20 04:00] VITALS: BP_SYST 170; BP_DIAS 73; BP_DIAS 89
[2017-01-20] MEDS: hydrALAZINE HCL IV 20 MG VIAL IV PRN ×2 (05:30→17:52)
[2017-01-20 06:37] LABS: HEMATOCRIT 37 % (39-51); HEMOGLOBIN 11.8 g/dL (13.5-17.5); MEAN CORPUSCULAR HEMOGLOBIN 26 PG (26.0-33.0); MEAN CORPUSCULAR HGB CONC 32 g/dl (31.0-36.0); MEAN CORPUSCULAR VOLUME 81 fL (80-96); PLATELET COUNT (AUTO) 256 /CMM (150-450); RDW COEFFICIENT OF VARIATION 16.3 (11.5-15.0); RED BLOOD CELL COUNT(AUTO) 4.54 MIL/uL (4.5-6.0); WHITE BLOOD COUNT (AUTO) 7.8 K/uL (4.3-11.0)
[2017-01-20 07:01] LABS: CALCIUM, SERUM 8.7 mg/dL (8.5-10.1); CREATININE 0.8 mg/dL (0.6-1.3); MAGNESIUM 2.2 mg/dL (1.8-2.4); PHOSPHORUS 3.2 mg/dL (2.5-4.9); POTASSIUM 4.1 mmol/L (3.5-5.1)
--- NOTE | 2017-01-20 07:10 | NUR ---
RN INITIAL NOTES RECEIVED PT AWAKE, A/OX1. PT CONFUSED, PERIODS OF YELLING. HAS 1:1 SITTER. ON ROOM AIR. NO RESPIRATORY DISTRESS NOTED. NO SOB NOTED. NO SIGNS OF PAIN N0TED. WITH RFA G#[address] FLUSHED WITH NS. PT COMFORTABLE. CALL LIGHT WITHIN REACH. WILL MONITOR.
[2017-01-20 08:00] VITALS: BP 132/45
[2017-01-20] MEDS: MULTIVITAMINS W-MINERALS 1 TAB TABLET PO SCH (08:11)
[2017-01-20] MEDS: busPIRone 5 MG TABLET PO SCH ×3 (08:11→16:43)
[2017-01-20] MEDS: LEVOTHYROXINE SODIUM 50 MCG TABLET PO SCH (08:11)
[2017-01-20] MEDS: METOPROLOL TARTRATE 25 MG TABLET PO SCH ×2 (08:11→16:43)
[2017-01-20] MEDS: LOSARTAN POTASSIUM 50 MG TABLET PO SCH ×2 (08:11→16:43)
[2017-01-20] MEDS: PANTOPRAZOLE 40 MG TABLET.DR PO SCH (08:11)
[2017-01-20] MEDS: FERROUS SULFATE (325 MG) 325 MG/TAB TABLET PO SCH (08:11)
[2017-01-20] MEDS: SUCRALFATE 1 G TABLET PO SCH ×4 (08:12→20:28)
[2017-01-20] MEDS: CHOLECALCIFEROL 1,000 UNIT TABLET (VIT D3) PO SCH (08:12)
[2017-01-20] MEDS: NEOMY SULF/BACITRAC ZN/POLY 15 GM TUBE TP SCH (08:34)
[2017-01-20 09:14] LABS: ANISOCYTOSIS 1+; HYPOCHROMASIA 1+; LYMPHOCYTES % (MANUAL) 8 % (16-48); MONOCYTES % (MANUAL) 6 % (0-11.0); NEUTROPHILS % (MANUAL) 86 (42-76); PLATELET ESTIMATE ADEQUATE
[2017-01-20 12:00] VITALS: BP 146/81
--- NOTE | 2017-01-20 12:03 | NUR ---
RN NOTES SEEN AND EXAMINED BY DR. WILL DUNLAP. AWARE OF CURRENT LAB RESULTS. ORDERED LABS IN AM. NOTED AND CARRIED OUT.
[2017-01-20 16:00] VITALS: BP 177/90
[2017-01-20] MEDS: SENNOSIDES/DOCUSATE SODIUM 1 TAB TABLET PO SCH (17:19)
--- NOTE | 2017-01-20 18:35 | NUR ---
RN CLOSING NOTES PT STABLE. NO RESPIRATORY DISTRESS NOTED. NO SOB NOTED. DENIES ANY PAIN. NO SYNCOPE EPISODE NOTED. AMBULATES TO BATHROOM WITH ASSISTANCE. BP CLOSELY MONITORED. KEPT COMFORTABLE. KEPT CLEAN AND DRY. ALL NEEDS ATTENDED AND MET. WITH 1:1 SITTER. CALL LIGHT WITHIN REACH. WILL ENDORSE FOR CONTINUITY OF CARE.
[2017-01-20 20:00] VITALS: BP_SYST 152; BP_SYST 157; BP_DIAS 102
[2017-01-20] MEDS: CARVEDILOL 12.5 MG TABLET PO SCH (20:28)
[2017-01-20] MEDS: DOCUSATE SODIUM 100 MG CAPSULE PO SCH (20:28)
[2017-01-20] MEDS: TAMSULOSIN 0.4 MG CAP.SR.24H PO SCH (20:28)
[2017-01-20] MEDS: QUETIAPINE FUMARATE 25 MG TABLET PO SCH (20:28)
--- NOTE | 2017-01-20 20:32 | NUR ---
GOLF COURSE KEEPER PT REQUESTING ALL HIS MEDS NOW. SAYING HE IS GOING TO SLEEP AND DOES NOT WANT TO BE WOKEN UP. KEEPS REPEATING GOOD NIGHT. MILDLY AGITATED. MEDS GIVEN EARLY. 1:1 SITTER AT BEDSIDE FOR SAFETY. CONTINUE TO MONITOR.
[2017-01-21] VITALS (7 sets, daily range): BP systolic 130–178; BP diastolic 52–93
[2017-01-21 06:51] LABS: CALCIUM, SERUM 8.1 mg/dL (8.5-10.1); CREATININE 0.7 mg/dL (0.6-1.3); MAGNESIUM 1.7 mg/dL (1.8-2.4); PHOSPHORUS 2.6 mg/dL (2.5-4.9); POTASSIUM 3.6 mmol/L (3.5-5.1)
[2017-01-21 07:01] LABS: HEMATOCRIT 32 % (39-51); HEMOGLOBIN 10.5 g/dL (13.5-17.5); MEAN CORPUSCULAR HEMOGLOBIN 27 PG (26.0-33.0); MEAN CORPUSCULAR HGB CONC 33 g/dl (31.0-36.0); MEAN CORPUSCULAR VOLUME 82 fL (80-96); PLATELET COUNT (AUTO) 208 /CMM (150-450); RDW COEFFICIENT OF VARIATION 16.3 (11.5-15.0); RED BLOOD CELL COUNT(AUTO) 3.94 MIL/uL (4.5-6.0); WHITE BLOOD COUNT (AUTO) 4.9 K/uL (4.3-11.0)
--- NOTE | 2017-01-21 07:05 | NUR ---
RN NOTES RECEIVED PT AWAKE ALERT X1 CONFUSION ,AGITATED , REORIENT PATIENT , 1 ;1 SITTER AT BEDSIDE , SPO2 OF 98% VIA RA , NO S/S OF DISCOMFORT AND SOB , NOT IN ACUTE DISTRESS AT THIS TIME. SR 85 ON TELE MONITOR . IV OF R FOREARM # 20 SL PATENT AND INTACT , ALL NEEDS ATTENDED , BED ON LOW AND LOCKED POSITION , SIDE RAILS X2 .CALL LIGHT WITHIN REACH , HOB @ 35 , WILL CONTINUE TO MONITOR .
[2017-01-21] MEDS: CHOLECALCIFEROL 1,000 UNIT TABLET (VIT D3) PO SCH (08:00)
[2017-01-21] MEDS: QUETIAPINE FUMARATE 25 MG TABLET PO PRN (08:00)
[2017-01-21] MEDS: busPIRone 5 MG TABLET PO SCH ×3 (08:00→16:41)
[2017-01-21] MEDS: LOSARTAN POTASSIUM 50 MG TABLET PO SCH ×2 (08:00→16:41)
[2017-01-21] MEDS: FERROUS SULFATE (325 MG) 325 MG/TAB TABLET PO SCH (08:00)
[2017-01-21] MEDS: MULTIVITAMINS W-MINERALS 1 TAB TABLET PO SCH (08:00)
--- NOTE | 2017-01-21 08:00 | NUR ---
KNIT GOODS PRESS HAND NOTES PT BP OF 178/93 , AM MEDS GIVEN , WILL RE ASSESS BP
[2017-01-21] MEDS: CARVEDILOL 12.5 MG TABLET PO SCH ×2 (08:01→21:25)
[2017-01-21] MEDS: LEVOTHYROXINE SODIUM 50 MCG TABLET PO SCH (08:01)
[2017-01-21] MEDS: SUCRALFATE 1 G TABLET PO SCH ×4 (08:02→21:24)
[2017-01-21] MEDS: PANTOPRAZOLE 40 MG TABLET.DR PO SCH (08:02)
[2017-01-21] MEDS: Z GUARD REMEDY 2 OZ OINT TP PRN (08:07)
[2017-01-21] MEDS: NEOMY SULF/BACITRAC ZN/POLY 15 GM TUBE TP SCH (08:07)
[2017-01-21] MEDS ORDERED: AMLODIPINE BESYLATE 5 MG TABLET PO SCH (09:00)
--- NOTE | 2017-01-21 09:46 | NUR ---
RN NOTES DR JARAD CARRASCO AT BEDSIDE , NOTIFIED PT NA 131 , ON FLUID RESTRICTION 1500ML , PENDING URINE STUDIES , MAG OF 1.7 PER MD LET THE PHARMACY REPLACE MAGNESIUM ,
--- NOTE | 2017-01-21 11:05 | NUR ---
RN NOTES URINE SAMPLE OBTAINED AND SENT TO LAB ,
[2017-01-21 12:02] LABS: EOSINOPHILS % (MANUAL) 3 % (0-4); LYMPHOCYTES % (MANUAL) 31 % (16-48); MONOCYTES % (MANUAL) 6 % (0-11.0); NEUTROPHILS % (MANUAL) 60 (42-76)
[2017-01-21 12:03] LABS: PLATELET ESTIMATE ADEQUATE
[2017-01-21] MEDS: Magnesium 1GM/D5W 100ML PREMIX 100 ML IV SCH ×2 (12:21→13:50)
[2017-01-21] MEDS ORDERED: Magnesium 1GM/D5W 100ML PREMIX 100 ML IV SCH (12:30)
[2017-01-21 16:02] LABS: CREATININE, URINE 45.8 MG/DL (30.0-125.0)
[2017-01-21] MEDS: AMLODIPINE BESYLATE 5 MG TABLET PO SCH (16:40)
[2017-01-21] MEDS: SENNOSIDES/DOCUSATE SODIUM 1 TAB TABLET PO SCH (16:41)
--- NOTE | 2017-01-21 19:30 | NUR ---
MS RN INITIAL NOTES RECEIVED PATIENT A/OX1, SITTER AT BEDSIDE. DENIES PAIN OR DISCOMFORT. NO RESPIRATORY DISTRESS NOTED, ON ROOM AIR. WITH RFA 20G PATENT AND INTACT. SIDE RAILS UP AND LOCKED. BED KEPT AT LOWEST POSITION. CALL LIGHT KEPT WITHIN EASY REACH. WILL CONTINUE TO MONITOR.
--- NOTE | 2017-01-21 20:00 | NUR ---
NOTED WITH ELEVATED BP 174/79. DENIES ANY PAIN OR DISCOMFORT. PLEASANTLY CONFUSED. SITTER AT BEDSIDE. WILL GIVE DUE BP MED.
[2017-01-21] MEDS: QUETIAPINE FUMARATE 25 MG TABLET PO SCH (21:24)
[2017-01-21] MEDS: DOCUSATE SODIUM 100 MG CAPSULE PO SCH (21:26)
[2017-01-21] MEDS: TAMSULOSIN 0.4 MG CAP.SR.24H PO SCH (21:26)
--- NOTE | 2017-01-21 21:40 | NUR ---
BP RECHECKED 129/61. WILL CONTINUE TO MONITOR.
[2017-01-22 04:00] VITALS: BP 169/71
[2017-01-22 05:00] VITALS: BP 154/69
[2017-01-22 06:30] LABS: HEMATOCRIT 32 % (39-51); HEMOGLOBIN 10.4 g/dL (13.5-17.5); MEAN CORPUSCULAR HEMOGLOBIN 26 PG (26.0-33.0); MEAN CORPUSCULAR HGB CONC 33 g/dl (31.0-36.0); MEAN CORPUSCULAR VOLUME 81 fL (80-96); PLATELET COUNT (AUTO) 239 /CMM (150-450); RDW COEFFICIENT OF VARIATION 15.8 (11.5-15.0); RED BLOOD CELL COUNT(AUTO) 3.96 MIL/uL (4.5-6.0)
--- NOTE | 2017-01-22 06:49 | NUR ---
MS RN CLOSING NOTES NO SIGNIFICANT CHANGES OVERNIGHT. ALL NEEDS ANTICIPATED AND MET. SITTER AT BEDSIDE. ASSISTED TO RESTROOM NEEDED. FALL PRECAUTIONS OBSERVED. ABLE TO AMBULATE WITH ASSISTANCE AND ASSISTIVE DEVICE WITH NO COMPLICATIONS. NO C/O PAIN OR DISCOMFORT. SLEPT WELL THROUGH THE NIGHT. KEPT CLEAN AND DRY. SIDE RAILS UP AND LOCKED. BED KEPT AT LOWEST POSITION. CALL LIGHT KEPT WITHIN EASY REACH. WILL ENDORSE CONTINUITY OF CARE TO AM NURSE.
[2017-01-22 06:59] LABS: CALCIUM, SERUM 8.2 mg/dL (8.5-10.1); CREATININE 0.6 mg/dL (0.6-1.3); MAGNESIUM 1.8 mg/dL (1.8-2.4); PHOSPHORUS 2.9 mg/dL (2.5-4.9); POTASSIUM 3.8 mmol/L (3.5-5.1)
[2017-01-22 08:00] VITALS: BP 147/69
[2017-01-22] MEDS: PANTOPRAZOLE 40 MG TABLET.DR PO SCH (08:55)
[2017-01-22] MEDS: busPIRone 5 MG TABLET PO SCH ×3 (08:55→18:10)
[2017-01-22] MEDS: LEVOTHYROXINE SODIUM 50 MCG TABLET PO SCH (08:55)
[2017-01-22] MEDS: MULTIVITAMINS W-MINERALS 1 TAB TABLET PO SCH (08:56)
[2017-01-22] MEDS: CHOLECALCIFEROL 1,000 UNIT TABLET (VIT D3) PO SCH (08:56)
[2017-01-22] MEDS: FERROUS SULFATE (325 MG) 325 MG/TAB TABLET PO SCH (08:56)
[2017-01-22] MEDS: LOSARTAN POTASSIUM 50 MG TABLET PO SCH ×2 (08:56→17:00)
[2017-01-22] MEDS: AMLODIPINE BESYLATE 5 MG TABLET PO SCH ×2 (08:56→17:00)
[2017-01-22] MEDS: CARVEDILOL 12.5 MG TABLET PO SCH ×2 (08:57→21:40)
[2017-01-22] MEDS: NEOMY SULF/BACITRAC ZN/POLY 15 GM TUBE TP SCH (08:58)
[2017-01-22] MEDS: SUCRALFATE 1 G TABLET PO SCH ×4 (08:59→21:40)
[2017-01-22] MEDS ORDERED: ASPIRIN EC 81 MG TABLET.DR PO SCH (09:00)
[2017-01-22 09:47] LABS: NEUTROPHILS % (MANUAL) 50 (42-76)
[2017-01-22 09:48] LABS: EOSINOPHILS % (MANUAL) 3 % (0-4); LYMPHOCYTES % (MANUAL) 34 % (16-48); MONOCYTES % (MANUAL) 13 % (0-11.0); PLATELET ESTIMATE ADEQUATE
[2017-01-22] MEDS: QUETIAPINE FUMARATE 25 MG TABLET PO PRN (11:37)
[2017-01-22 16:00] VITALS: BP 94/73
[2017-01-22] MEDS: SENNOSIDES/DOCUSATE SODIUM 1 TAB TABLET PO SCH (18:10)
[2017-01-22 20:00] VITALS: BP 156/51
[2017-01-22] MEDS: QUETIAPINE FUMARATE 25 MG TABLET PO SCH (21:39)
[2017-01-22] MEDS: TAMSULOSIN 0.4 MG CAP.SR.24H PO SCH (21:40)
[2017-01-22] MEDS: DOCUSATE SODIUM 100 MG CAPSULE PO SCH (21:40)
[2017-01-23 04:00] VITALS: BP_SYST 18; BP_SYST 180; BP_DIAS 84
[2017-01-23] MEDS: hydrALAZINE HCL 25 MG TABLET PO PRN ×2 (04:34→08:44)
--- NOTE | 2017-01-23 04:47 | NUR ---
RN NOTES: PATIENT IS ANXIOUS. BLOOD PRESSURE READING IS 180/84 MMHG. HEART RATE 78 BPM. APRESOLINE 25 MG PO PRN IS GIVEN PRESCRIBED. WILL CONTINUE TO MONITOR.
[2017-01-23] MEDS: QUETIAPINE FUMARATE 25 MG TABLET PO PRN ×2 (07:13→08:45)
--- NOTE | 2017-01-23 07:13 | NUR ---
RN NOTES: PATIENT IS ANXIOUS QUETAPINE FUMARATE 12.5 MG PRN IS GIVEN PRESCRIBED. BLOOD PRESSURE IS 151/66 MMHG. HEART RATE 90 BPM. WILL ENDORSE IT TO AM SHIFT NURSE TO FOLLOW UP.
[2017-01-23 08:00] VITALS: BP 155/59
[2017-01-23] MEDS: SUCRALFATE 1 G TABLET PO SCH ×4 (08:41→20:34)
[2017-01-23] MEDS: MULTIVITAMINS W-MINERALS 1 TAB TABLET PO SCH (08:42)
[2017-01-23] MEDS: CHOLECALCIFEROL 1,000 UNIT TABLET (VIT D3) PO SCH (08:42)
[2017-01-23] MEDS: LEVOTHYROXINE SODIUM 50 MCG TABLET PO SCH (08:43)
[2017-01-23] MEDS: busPIRone 5 MG TABLET PO SCH ×3 (08:43→17:19)
[2017-01-23] MEDS: LOSARTAN POTASSIUM 50 MG TABLET PO SCH ×2 (08:43→17:20)
[2017-01-23] MEDS: AMLODIPINE BESYLATE 5 MG TABLET PO SCH ×2 (08:44→17:19)
[2017-01-23] MEDS: FERROUS SULFATE (325 MG) 325 MG/TAB TABLET PO SCH (08:44)
[2017-01-23] MEDS: CARVEDILOL 12.5 MG TABLET PO SCH ×2 (08:44→20:34)
[2017-01-23] MEDS: NEOMY SULF/BACITRAC ZN/POLY 15 GM TUBE TP SCH (08:45)
[2017-01-23] MEDS: PANTOPRAZOLE 40 MG TABLET.DR PO SCH (08:45)
[2017-01-23 12:00] VITALS: BP 138/75
[2017-01-23] MEDS ORDERED: AMLO5TAB2 PO (15:19)
[2017-01-23] MEDS ORDERED: CARV12.52 PO (15:19)
[2017-01-23 16:00] VITALS: BP 152/72
[2017-01-23] MEDS: SENNOSIDES/DOCUSATE SODIUM 1 TAB TABLET PO SCH (17:19)
[2017-01-23 19:46] VITALS: BP 157/82
[2017-01-23 20:00] VITALS: BP 186/84
[2017-01-23] MEDS: TAMSULOSIN 0.4 MG CAP.SR.24H PO SCH (20:34)
[2017-01-23] MEDS: DOCUSATE SODIUM 100 MG CAPSULE PO SCH (20:35)
[2017-01-23] MEDS: QUETIAPINE FUMARATE 25 MG TABLET PO SCH (20:35)
[2017-01-24 04:00] VITALS: BP 167/81
[2017-01-24 04:42] VITALS: BP 167/81
[2017-01-24] MEDS: hydrALAZINE HCL 25 MG TABLET PO PRN (05:29)
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
[2017-01-24 08:00] VITALS: BP 155/74
--- NOTE | 2017-01-24 08:00 | NUR ---
RN INTIAL NOTE RECEIVED REPORT FROM PM SHIFT NURSE. AOX1 CONFUSED AT TIME. IV RFA 20 G PATENT. V/S STABLE NO COMPLAINT OF PAIN. REPOSITIONED FOR SAFETY AND COMFORT. PT DRY AND WARM. SITTER AT BEDSIDE. PT TOOK ALL AM MEDS. BED LOW, LOCKED AND CALL LIGHT WITH IN REACH. WILL CONTINUE TO MONITOR CLOSELY.
[2017-01-24] MEDS: busPIRone 5 MG TABLET PO SCH ×2 (08:30→12:29)
[2017-01-24] MEDS: MULTIVITAMINS W-MINERALS 1 TAB TABLET PO SCH (08:30)
[2017-01-24] MEDS: CHOLECALCIFEROL 1,000 UNIT TABLET (VIT D3) PO SCH (08:30)
[2017-01-24] MEDS: FERROUS SULFATE (325 MG) 325 MG/TAB TABLET PO SCH (08:31)
[2017-01-24] MEDS: PANTOPRAZOLE 40 MG TABLET.DR PO SCH (08:31)
[2017-01-24] MEDS: QUETIAPINE FUMARATE 25 MG TABLET PO PRN (08:31)
[2017-01-24] MEDS: LEVOTHYROXINE SODIUM 50 MCG TABLET PO SCH (08:31)
[2017-01-24] MEDS: CARVEDILOL 12.5 MG TABLET PO SCH (08:32)
[2017-01-24 08:33] VITALS: BP 155/74
[2017-01-24] MEDS: LOSARTAN POTASSIUM 50 MG TABLET PO SCH (08:33)
[2017-01-24] MEDS: AMLODIPINE BESYLATE 5 MG TABLET PO SCH (08:33)
[2017-01-24] MEDS: NEOMY SULF/BACITRAC ZN/POLY 15 GM TUBE TP SCH (08:34)
[2017-01-24] MEDS: SUCRALFATE 1 G TABLET PO SCH ×2 (08:40→12:29)
--- NOTE | 2017-01-24 14:14 | NUR ---
NUISANCE WILDLIFE SPECIALIST NOTE PT DISCHARGED V/S WNL AND STABLE. IV SITE REMOVED, ID BAND REMOVED. PT REFUSED TO CHANGE INTO REGULAR CLOTHING. PT ADMIT ABOUT LEAVING IN GOWN. SITTER FEBRUARY WALK PT OUT TO [facility] WHERE TRANSPORTATION TO ASSISTED LIVING FACILITY. PT LEFT WITH BELONGINGS AND WALKER.+
--- NOTE | 2017-01-25 07:59 | NUR ---
MEI PEREZ CALLED AND REQUESTED PT. NEW MEDS TO BE CALLED IN TO PHARMACY.ABLE TO PULL RECORDS PRESCRIPTION NORVASC ,CARVEDILOL CALL IN TO [facility] IN [place] . MEI PEREZ [phone] NOTIFIED .ALSO INSTRUCTED PT. NEED TO FF.UP WITH PRIMARY PHYSICIAN IN ONE WEEK SINCE THE NEW BP MEDS IS ONLY FOR A WEEK.
--- NOTE | 2017-01-25 08:07 | NUR ---
PT. [facility]Y [facility] IN [facility] TEL .[phone] PER PHARMACIST RANDAL CAN BE PICKUP AFTER 9AM, SON CHRIS NOTIFIED VIA MESSAGE ON HIS PHONE.
== END 2017-01-24 15:27 | DRG 542 ==
LOC: ER 06:42 → TELE1 08:36 → TELE-TD 01-17 19:59 → MEDSG1 01-21 11:59
PROVIDERS: ADMIT Family Medicine; ATTEND Family Medicine
DX: M48.55XA Collapsed vertebra, not elsewhere classified, thoracolumbar region, initial encounter for fracture (principal); G93.40 Encephalopathy, unspecified; E22.2 Syndrome of inappropriate secretion of antidiuretic hormone; J98.11 Atelectasis; I95.1 Orthostatic hypotension; I10 Essential (primary) hypertension; K21.9 Gastro-esophageal reflux disease without esophagitis; M81.0 Age-related osteoporosis without current pathological fracture; E03.9 Hypothyroidism, unspecified; F32.9 Major depressive disorder, single episode, unspecified; N40.0 Benign prostatic hyperplasia without lower urinary tract symptoms; D64.9 Anemia, unspecified; I25.10 Atherosclerotic heart disease of native coronary artery without angina pectoris; D63.8 Anemia in other chronic diseases classified elsewhere; F02.80 Dementia in other diseases classified elsewhere, unspecified severity, without behavioral disturbance, psychotic disturbance, mood disturbance, and anxiety; F29 Unspecified psychosis not due to a substance or known physiological condition; G30.9 Alzheimer's disease, unspecified; F42.9 Obsessive-compulsive disorder, unspecified; W19.XXXA Unspecified fall, initial encounter; Y93.9 Activity, unspecified; Y92.129 Unspecified place in nursing home as the place of occurrence of the external cause; M54.9 Dorsalgia, unspecified; M47.9 Spondylosis, unspecified
CPT/HCPCS: 36415; 70450-TC; 71010-TC; 72128-TC; 72131-TC; 73120-TC; 73520-TC; 73562; 80048-TC; 80053-TC; 80061-TC; 80076-TC; 81000-TC; 82570-TC; 83605-TC; 83735-TC; 83935-TC; 84100-TC; 84300-TC; 84436-TC; 84443-TC; 84484-TC; 85025-TC; 85730-TC; 86431-TC; 86850-TC; 87040-TC; 87081-TC; 92521; 93307-TC; 97001-TC; 97003-TC; 97116-TC; 97530-TC; A4606; J0360; J2060; J2270; J3475; J7030; Z7610

== ENCOUNTER 2019-10-22 10:23 | Emergency (ER) | payer MEDICARE, OTHER ==
[~2019-10-22] VITALS: Ht 175.3 cm; Wt 63.0 kg
[~2019-10-22 10:23] MED LIST changes: -AMLO10TA2 PO; +AMLO5TAB9 PO; -AMOX500C2 PO; +BUSP5TAB3 PO; -CALC-343 PO; +CARV12.52 PO; -CHOL100040 PO; -CYAN10009 PO; +DOCU-141 PO; -FERR1TAB44 PO; +FERR325T22 PO; +LEVO50TA8 PO; -LOSA50TA21 PO; +LOSA50TA39 PO; -MULT-1168 PO; +MULT-213 PO; -PYRI50TA9 PO; +SUCR1TAB PO; +TAMS0.4C34 PO; -TRIPLEFLEX PO
--- NOTE | 2019-10-22 10:23 | NUR ---
KATYA BELLAMY FROM [place] DUE TO COFFEE GROUND VOMIT. TO ER BED 11, HOOKED TO MONITOR, CHANGED TO HOSP GOWN, PROVIDED W WARM BLANKET, VSS, AOx1, BREATHING EVEN AND UNLABORED, AWAITING MD PARDO.
--- NOTE | 2019-10-22 11:00 | NUR ---
DR CHERY AT BEDSIDE
[2019-10-22 11:14] LABS: BASOPHILS % (AUTO) 0.4 % (0.0-2.0); EOSINOPHILS % (AUTO) 0.2 % (0.0-6.0); HEMATOCRIT 24 % (39-51); HEMOGLOBIN 7.8 g/dL (13.5-17.5); LYMPHOCYTES # (AUTO) 1.5 /CMM (0.8-4.8); LYMPHOCYTES % (AUTO) 23.3 % (20.0-44.0); MEAN CORPUSCULAR HGB CONC 33 g/dl (31.0-36.0); MEAN CORPUSCULAR VOLUME 80 fL (80-96); MONOCYTES # (AUTO) 0.6 /CMM (0.1-1.30); MONOCYTES % (AUTO) 9.5 % (2.0-12.0); NEUTROPHILS # (AUTO) 4.1 /CMM (1.8-8.9); NEUTROPHILS % (AUTO) 66.6 % (43.0-81.0); PLATELET COUNT (AUTO) 286 /CMM (150-450); RED BLOOD CELL COUNT(AUTO) 3.01 MIL/uL (4.5-6.0); WHITE BLOOD COUNT (AUTO) 6.2 K/uL (4.3-11.0)
[2019-10-22 11:21] LABS: CALCIUM, SERUM 8.7 mg/dL (8.5-10.1); CREATININE 0.8 mg/dL (0.6-1.3); POTASSIUM 4.2 mmol/L (3.5-5.1)
--- NOTE | 2019-10-22 11:26 | NUR ---
URINE SAMPLE COLLECTED VIA STRAIGHT CATHETER, SENT SAMPLE TO LAB
[2019-10-22 11:27] LABS: ALBUMIN 2.9 g/dL (3.4-5.0); BILIRUBIN,TOTAL 0.1 mg/dL (0.2-1.0); TOTAL PROTEIN, SERUM 7.1 g/dL (6.4-8.2)
[2019-10-22 11:30] LABS: APPEARANCE,URINE Clear (CLEAR); BILIRUBIN,URINE Negative (NEGATIVE); BLOOD, URINE Negative Ery/uL (NEGATIVE); COLOR,URINE Yellow (YELLOW); KETONES,URINE Negative (NEGATIVE); LEUKOCYTE ESTERASE ,URINE Negative (NEGATIVE); NITRITE, URINE Negative (NEGATIVE); PROTEIN,URINE Negative (NEGATIVE); UGLUCOSE Negative (NEGATIVE); UROBILINOGEN,URINE 0.2 EU/dL (0.2)
[2019-10-22] MEDS ORDERED: IV NS 0.9% 1,000 ML BAG IV ONE (11:30)
--- NOTE | 2019-10-22 12:53 | NUR ---
: tha [phone]
--- NOTE | 2019-10-22 14:06 | NUR ---
AT BEDSIDE. SPOKE TO DR CHERY
--- NOTE | 2019-10-22 14:25 | NUR ---
TRIED TO FEED PATIENT, REFUSES TO EAT.
--- NOTE | 2019-10-22 14:41 | NUR ---
REPORT GIVEN TO DARSHAN DUNAWAY OF [facility]
--- NOTE | 2019-10-22 14:52 | NUR ---
TRANSPORT CALLED [phone] ETA IS 1600 PER NATHANIEL TRIP #[id number]
--- NOTE | 2019-10-22 16:02 | NUR ---
IV removed. Catheter intact and site benign. Pressure and 4x4 applied to site. No bleeding noted. Patient picked up by [facility] in stable condition. Written and verbal after care instructions given. EMT verbalizes understanding of instruction. Patient will be brought back to [facility].
[2019-10-22 16:06] VITALS: BP 112/54
== END 2019-10-22 16:06 ==
LOC: ER 10:32
DX: K44.9 Diaphragmatic hernia without obstruction or gangrene (principal); R41.0 Disorientation, unspecified; I10 Essential (primary) hypertension; I25.2 Old myocardial infarction; K21.9 Gastro-esophageal reflux disease without esophagitis; F41.9 Anxiety disorder, unspecified; F03.90 Unspecified dementia, unspecified severity, without behavioral disturbance, psychotic disturbance, mood disturbance, and anxiety; M81.0 Age-related osteoporosis without current pathological fracture; D64.9 Anemia, unspecified; Z88.6 Allergy status to analgesic agent; Z88.8 Allergy status to other drugs, medicaments and biological substances; Z79.899 Other long term (current) drug therapy
CPT/HCPCS: 36415; 71045; 74176; 80048; 80076; 81001; 83690; 85025; 96360; 99284; J7030; 81000-TC